=== PATIENT | female | born 1960 | race Asian ===

== ENCOUNTER 2019-04-17 09:27 | Inpatient (IN) | payer MEDICAID ==
[~2019-04-17] VITALS: Ht 167.6 cm; Wt 99.8 kg
[~2019-04-17 09:27] MED LIST: ASPI81EC19 PO; CALC-1198 PO; CHOL200072 PO; FERR325E14 PO; LISI-420 PO
[2019-04-17 09:31] VITALS: BP 166/70
--- NOTE | 2019-04-17 09:38 | NUR ---
PT AMBULATED TO ER BED 04
--- NOTE | 2019-04-17 09:55 | NUR ---
BIB SON C/O HTN. SON REPORTS HIGH BLOOD PRESSURE YESTERDAY AND TODAY STATING THE HIGHEST SBP WAS 170 ACCOMPANIED WITH HEADACHE, BLURRY VISION, AND DIZZINESS. CURRENT BLOOD PRESSURE 157/67 mmHG. DENIES N/V/D; SKIN IS PINK/WARM/DRY; AAOX4 WITH EVEN AND STEADY GAIT; LUNGS CLEAR BL; HR EVEN AND REGULAR; PT DENIES ANY FEVER, CP, SOB, OR COUGH AT THIS TIME; PATIENT STATES PAIN OF 7/10 AT THIS TIME; VSS; PATIENT POSITIONED FOR COMFORT; HOB ELEVATED; BEDRAILS UP X2; BED DOWN. ER MD MADE AWARE OF PT STATUS. PT IS ON 2L OXYGEN, NASAL CANNULA, AND MONITOR.
[2019-04-17] MEDS ORDERED: ONDANSETRON 4 MG/2 ML VIAL IVP ONE (10:05)
[2019-04-17] MEDS ORDERED: MECLIZINE 25 MG TAB PO ONE (10:05)
[2019-04-17 10:23] LABS: BASOPHILS # (AUTO) 0.1 K/uL (0.00-0.22); BASOPHILS % (AUTO) 0.9 % (0.0-2.0); EOSINOPHILS # (AUTO) 0.2 K/uL (0-0.4); EOSINOPHILS % (AUTO) 3.1 % (0.0-4.0); HEMATOCRIT 36.8 % (36-48); HEMOGLOBIN 11.8 g/dL (12.0-16.0); LYMPHOCYTES # (AUTO) 2.3 K/uL (2.5-16.5); LYMPHOCYTES % (AUTO) 30.2 % (20.5-51.1); MEAN CORPUSCULAR HEMOGLOBIN 20 pg (27-31); MEAN CORPUSCULAR HGB CONC 32 g/dL (33-37); MONOCYTES # (AUTO) 0.5 K/uL (0.8-1.0); MONOCYTES % (AUTO) 7.1 % (1.7-9.3); NEUTROPHILS # (AUTO) 4.4 K/uL (1.8-7.7); NEUTROPHILS % (AUTO) 58.7 % (42.2-75.2); PLATELET COUNT (AUTO) 225 K/uL (140-450); RED BLOOD CELL COUNT(AUTO) 5.94 MIL/uL (4.20-5.40); WHITE BLOOD COUNT (AUTO) 7.5 K/uL (4.8-10.8)
--- NOTE | 2019-04-17 10:25 | NUR ---
returned from radiology via [facility]
[2019-04-17 10:34] LABS: ANION GAP 10.8 (8-16); CARBON DIOXIDE 28.8 mmol/L (21-32); CREATININE 0.6 mg/dL (0.6-1.3); POTASSIUM 3.6 mmol/L (3.5-5.1)
[2019-04-17 10:40] LABS: ALBUMIN 3.5 g/dL (3.4-5.0); TOTAL BILIRUBIN 0.4 mg/dL (0.0-1.0)
[2019-04-17 10:47] LABS: PROTHROMBIN TIME 9.8 secs (10.8-13.4)
[2019-04-17] MEDS ORDERED: MORPHINE SULFATE 4 MG/ML SYR IVP ONE (11:15)
[2019-04-17] MEDS ORDERED: DEXAMETHASONE 10 MG/ML VIAL IVP ONE (11:15)
[2019-04-17] MEDS ORDERED: FAMOTIDINE 20 MG/2 ML VIAL IVP ONE (11:15)
[2019-04-17 12:22] LABS: APPEARANCE,URINE CLEAR (CLEAR); BILIRUBIN,URINE NEGATIVE (NEGATIVE); BLOOD, URINE NEGATIVE (NEGATIVE); COLOR,URINE YELLOW (YELLOW); LEUKOCYTE ESTERASE ,URINE TRACE (NEGATIVE); NITRITE, URINE NEGATIVE (NEGATIVE); UGLUCOSE NEGATIVE (NEGATIVE)
[2019-04-17 12:33] LABS: RBC,URINE 0-5 /HPF (0-5); WBC,URINE 0-5 /HPF (0-5)
[2019-04-17] MEDS ORDERED: ONDANSETRON 4 MG/2 ML VIAL IM/IVP PRN (14:00)
[2019-04-17] MEDS ORDERED: ACETAMINOPHEN 325 MG TAB PO PRN (14:00)
[2019-04-17] MEDS ORDERED: MORPHINE SULFATE 2 MG/ML SYR IVP PRN (14:00)
[2019-04-17] MEDS ORDERED: DOCUSATE SODIUM 100 MG GELCAP PO PRN (14:00)
[2019-04-17] MEDS ORDERED: LORazepam 2 MG/ML VIAL IM/IVP PRN (14:00)
[2019-04-17] MEDS ORDERED: HYDROcodone/APAP 5/325 MG 1 TAB TAB PO PRN (14:00)
[2019-04-17] MEDS ORDERED: LISI-420 PO (14:29)
[2019-04-17] MEDS ORDERED: ATOR20TA40 PO (14:32)
[2019-04-17] MEDS ORDERED: CARV6.25 PO (14:33)
[2019-04-17] MEDS ORDERED: [UNRECOGNIZED DRUG - CODE] PO (14:37)
[2019-04-17 14:41] LABS: BARBITURATE, URINE NEG. ng/ml (NEG <=200); BENZODIAZEPINE, URINE NEG. ng/mL (NEG <=200); CANNABINOID, URINE NEG. ng/mL (NEG <=50); COCAINE, URINE NEG. ng/mL (NEG <=300); OPIATE, URINE NEG. ng/mL (NEG <=2000); PHENCYCLIDINE SCREEN,URINE NEG. ng/mL (NEG <=25)
--- NOTE | 2019-04-17 14:43 | NUR ---
Patient will be admitted to care of evalated Troponin and Bradycardia. Admited to Telemetry. Will go to room 126B. Belongings list completed. Report to TIFFANY Diaz.
--- NOTE | 2019-04-17 14:45 | NUR ---
PATIENT ARRIVED VIA GURNEY, PT AMBULATED FROM RELK RAPIDS TO BED. BEDSIDE REPORT RECEIVED FROM LOW PRESSURE FIRER JULIANA AT BEDSIDE FOR CONTINUITY OF CARE. SON ALEXANDRU AT BEDSIDE. PATIENT AOX4, MANDARIN SPEAKING. NO COMPLAINTS OF PAIN AT THIS TIME. NO DISTRESS OR SOB NOTED ON ROOM AIR. UPDATED BOARD. IV SITE INTACT, PATENT, AND ASYMPTOMATIC. MRSA SCREENING DONE. ORIENTED PATIENT AND SON TO ROOM, BED, CALL LIGHT, TV, AND BATHROOM. WILL CONTINUE TO MONITOR PATIENT.
[2019-04-17 14:51] LABS: PHOSPHORUS 3.6 mg/dL (2.5-4.9); THYROID STIMULATING HORMONE 2.79 uIU/mL (0.34-3.74)
[2019-04-17] MEDS: NACL 0.9% 1,000 ML IV SCH (15:20)
--- NOTE | 2019-04-17 15:45 | NUR ---
EXPLAINED PLAN OF CARE WITH PATIENT AND SON ALEXANDRU, THEY VERBALIZED UNDERSTANDING. NO COMPLAINTS AT THIS TIME, PATIENT DENIES PAIN. WILL CONTINUE TO MONITOR PATIENT.
[2019-04-17 16:00] VITALS: BP 140/63
[2019-04-17] MEDS ORDERED: MECLIZINE 25 MG TAB PO PRN (16:05)
[2019-04-17] MEDS ORDERED: APAP/BUTAL/CAFF 325/50/40 MG 1 TAB PO PRN (16:10)
[2019-04-17] MEDS ORDERED: ATORVASTATIN 20 MG TAB PO SCH (16:28)
[2019-04-17] MEDS ORDERED: ASPIRIN 81 MG TAB.CHEW PO SCH (17:00)
[2019-04-17] MEDS: FERROUS SULFATE 325 MG TABEC PO SCH (17:55)
--- NOTE | 2019-04-17 17:55 | NUR ---
ORDERED MEDICATIONS GIVEN. EXPLAINED MEDICATION TO PATIENT, SHE VERBALIZED UNDERSTANDING. PATIENT TOLERATED IT WELL. PATIENT CURRENTLY EATING DINNER. NO COMPLAINTS AT THIS TIME. WILL CONTINUE TO MONITOR PATIENT.
--- NOTE | 2019-04-17 19:30 | NUR ---
REPORT GIVEN TO OVERHAULER NURSE AT BEDSIDE FOR CONTINUITY OF CARE, PATIENT IN STABLE CONDITION, SON ALEXANDRU AT BEDSIDE.
--- NOTE | 2019-04-17 19:31 | NUR ---
RECEIVED REPORT FORM DAY SHIFT NURSE WILDA-RN AT BEDSIDE. PT RESTING IN BED, AOX4- SPEAKS MANDARIN, ON ROOM AIR WITH RIGHT HAND #20G RUNNING NS @60ML/HR. WITH THE HELP OF WILDA-RN DISCUSSED SCHEDULED MEDICATIONS AND PT VERBALIZED UNDERSTANDING. NO S/S OF RESPIRATORY DISTRESS OR DISCOMFORT NOTED AT THIS TIME. NO S/S OF RESPIRATORY DISTRESS OR DISCOMFORT NOTED AT THIS TIME. BED IN LOWEST POSITION, BED BREAKS ON, BOTH SIDE RAILS UP. BEDSIDE TABLE AND CALL LIGHT ARE WITHIN REACH. WILL CONTINUE TO MONITOR.
[2019-04-17 20:00] VITALS: BP 127/42
--- NOTE | 2019-04-17 20:00 | NUR ---
VITAL SIGNS TAKEN AND TOLERATED WELL. NO S/S OF RESPIRATORY DISTRESS OR DISCOMFORT NOTED AT THIS TIME. WILL CONTINUE TO MONITOR.
[2019-04-17] MEDS ORDERED: LISINOPRIL 20 MG TAB PO SCH (21:00)
--- NOTE | 2019-04-17 21:20 | NUR ---
SCHEDULED MEDICATIONS TAKEN AND TOLERATED WELL. NO S/S OF RESPIRATORY DISTRESS OR DISCOMFORT NOTED AT THIS TIME. WILL CONTINUE TO MONITOR.
--- NOTE | 2019-04-17 22:00 | NUR ---
PT SLEEPING IN BED. NO S/S OF RESPIRATORY DISTRESS OR DISCOMFORT NOTED AT THIS TIME. WILL CONTINUE TO MONITOR.
[2019-04-18] VITALS: BP 127/50
--- NOTE | 2019-04-18 | NUR ---
VITAL SIGNS TAKEN AND TOLERATED WELL. NO S/S OF RESPIRATORY DISTRESS OR DISCOMFORT NOTED AT THIS TIME. WILL CONTINUE TO MONITOR.
--- NOTE | 2019-04-18 02:00 | NUR ---
PT CONTINUES TO SLEEP IN BED. NO S/S OF RESPIRATORY DISTRESS OR DISCOMFORT NOTED AT THIS TIME. WILL CONTINUE TO MONITOR.
[2019-04-18 04:00] VITALS: BP 133/50
--- NOTE | 2019-04-18 04:00 | NUR ---
VITAL SIGNS TAKEN AND TOLERATED WELL. NO S/S OF RESPIRATORY DISTRESS OR DISCOMFORT NOTED AT THIS TIME. WILL CONTINUE TO MONITOR.
--- NOTE | 2019-04-18 06:00 | NUR ---
PT AWAKE RESTING IN BED. NO S/S OF RESPIRATORY DISTRESS OR DISCOMFORT NOTED AT THIS TIME. WILL CONTINUE TO MONITOR.
[2019-04-18 06:14] LABS: CHOL/HDL RATIO 2.9 (1-4.5)
[2019-04-18 06:18] LABS: PHOSPHORUS 3.6 mg/dL (2.5-4.9)
[2019-04-18 06:19] LABS: ANION GAP 14.7 (8-16); CARBON DIOXIDE 24.9 mmol/L (21-32); CREATININE 0.7 mg/dL (0.6-1.3); POTASSIUM 3.6 mmol/L (3.5-5.1)
[2019-04-18 06:20] LABS: BASOPHILS % (AUTO) 0.1 % (0.0-2.0); HEMATOCRIT 37.9 % (36-48); HEMOGLOBIN 12.1 g/dL (12.0-16.0); LYMPHOCYTES # (AUTO) 1.3 K/uL (2.5-16.5); LYMPHOCYTES % (AUTO) 8.2 % (20.5-51.1); MEAN CORPUSCULAR HEMOGLOBIN 20 pg (27-31); MEAN CORPUSCULAR HGB CONC 32 g/dL (33-37); MEAN CORPUSCULAR VOLUME 62.4 fL (80-94); MONOCYTES # (AUTO) 0.3 K/uL (0.8-1.0); MONOCYTES % (AUTO) 1.8 % (1.7-9.3); NEUTROPHILS # (AUTO) 14.8 K/uL (1.8-7.7); NEUTROPHILS % (AUTO) 89.9 % (42.2-75.2); PLATELET COUNT (AUTO) 220 K/uL (140-450); RED BLOOD CELL COUNT(AUTO) 6.07 MIL/uL (4.20-5.40); RED CELL DISTRIBUTION WIDTH 16.5 % (11.6-13.7); WHITE BLOOD COUNT (AUTO) 16.5 K/uL (4.8-10.8)
[2019-04-18] MEDS: NACL 0.9% 1,000 ML IV SCH (07:30)
[2019-04-18 08:00] VITALS: BP 118/55
--- NOTE | 2019-04-18 08:50 | NUR ---
DUE TO MEDITECH DOWNTIME, PLEASE REFER PREVIOUS NOTES IN PATIENT'S CHART.
[2019-04-18] MEDS ORDERED: LACTOBACILLUS RHAMNOSUS GG 1 EACH CAP PO SCH (09:00)
[2019-04-18] MEDS ORDERED: ATORVASTATIN 20 MG TAB PO SCH (09:00)
[2019-04-18] MEDS ORDERED: ASPIRIN 81 MG TAB.CHEW PO SCH (09:00)
--- NOTE | 2019-04-18 09:13 | NUR ---
PATIENT HAS BEEN SCREENED AND CATEGORIZED MODERATE NUTRITION RISK. PATIENT WILL BE SEEN WITHIN 3-5 DAYS OF ADMISSION. 04/20/19[address]
--- NOTE | 2019-04-18 09:15 | NUR ---
DR LANGE IS TALKING TO PATIENT AND SON RICHY AT BEDSIDE. NO SIGNS OF DISTRESS NOTED. TELE MONITOR ATTACHED. SAFETY MEASURES IN PLACE.
[2019-04-18] MEDS: FERROUS SULFATE 325 MG TABEC PO SCH ×2 (09:33→11:37)
--- NOTE | 2019-04-18 09:37 | NUR ---
ADMINISTERED MEDS PER MD ORDER, PATIENT TOLERATED WELL. PATIENT DENIES PAIN AND SOB. PATIENT IS SITTING UP ON BED AND TALKING TO SON ALEXANDRU BY BEDSIDE. NO SIGNS OF DISTRESS NOTED. SAFETY MEASURES IN PLACE. TELE MONITOR ATTACHED. INSTRUCTED PATIENT AND YADIEL HORVATH TO USE THE CALL LIGHT FOR ANY ASSISTANCE AND BOTH AWARE.
--- NOTE | 2019-04-18 10:00 | NUR ---
DR WILKINS IS ASSESSING PATIENT AT BEDSIDE. NO SIGNS OF DISTRESS NOTED. SAFETY MEASURES IN PLACE. TELE MONITOR ATTACHED.
[2019-04-18 10:01] LABS: TRANSFERRIN 191 mg/dL (200-370)
--- NOTE | 2019-04-18 11:39 | NUR ---
PATIENT IS RESTING ON BED. DENIES PAIN, DIZZINESS AND SOB. RESPIRATION EVEN AND UNLABORED ON RA. NO SIGNS OF DISTRESS NOTED. TELE MONITOR IN PLACE. SAFETY MEASURES IN PLACE. INSTRUCTED PATIENT TO USE THE CALL LIGHT AND PATIENT WAS AWARE.
--- NOTE | 2019-04-18 11:58 | NUR ---
PICKED UP CD IMAGES FROM [facility] DEPARTMENT AND PLACED IN PATIENT'S CHART.
[2019-04-18 12:00] VITALS: BP 130/51
--- NOTE | 2019-04-18 12:36 | NUR ---
I GOT A CALL FROM [facility] SPOKE WITH M[facility] , PATIENT IS GOING TO BE TRANSFER TO [facility] WAITING FOR ROOM NUMBER.AUTH FOR TRANSPORT IS [id number] WILL PUT A TRANSPORT WILL CALL
--- NOTE | 2019-04-18 13:16 | NUR ---
ARRANGED THE TRANSPORT WITH [facility] PLACE IT WILL CALL GAVE THE AUTHORIZATION # [id number]
--- NOTE | 2019-04-18 13:25 | NUR ---
PATIENT IS RESTING ON BED AT THIS TIME. NO SIGNS OF DISTRESS NOTED. TELE MONITOR IN PLACE. SAFETY MEASURES IN PLACE.
--- NOTE | 2019-04-18 14:41 | NUR ---
RECEIVED A CALL FROM [facility] SIMTH PT IS ACCEPTED TO [facility] UNDER THE CARE OF DR RADHA WALLACE THE ADDRESS [address] [place] [facility] [id number] CAN GO TO ROOM 232 THE NUMBER TO GIVE REPORT [phone]
--- NOTE | 2019-04-18 14:56 | NUR ---
ARRANGED TRANSPORT WITH [facility] TESTER/LIFT TRUCKER TIME 4PM TIFFANY BOCANEGRA AWARE OF IT.
--- NOTE | 2019-04-18 15:15 | NUR ---
PATIENT IS PLAYING HER PHONE ON BED. INFORMED PATIENT THAT SHE WILL TRANSFER TO ANOTHER HOSPITAL AND PATIENT WAS AWARE. NO SIGNS OF DISTRESS NOTED. SAFETY MEASURES IN PLACE.
--- NOTE | 2019-04-18 15:40 | NUR ---
CALLED SON ALEXANDRU AND INFORMED THAT PATIENT WILL BE TRANSFER TO A CONTRACTED FACILITY [facility]. PER ALEXANDRU, HE DOES NOT WANT TO TRANSFER HIS MOTHER OUT TO A [facility]AR AWAY FACILITY. HE WILL COME IN THE HOSPITAL AND WOULD LIKE TO SPEAK WITH THE DR. NOTIFIED DR LANGE ON ABOVE INFOR, AND PER DR LANGE, SHE WILL TALK TO ALEXANDRU ONCE HE ARRIVES THE HOSPITAL.
--- NOTE | 2019-04-18 15:50 | NUR ---
CALLED [facility] AND GAVE FULL REPORT TO DIPTI Burns RN. ANSWERED ALL DIPTI'S QUESTIONS AND PROVIDED A CALL BACK NUMBER FOR FURTHER INQUIRY. 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
[2019-04-18 16:00] VITALS: BP 135/57
--- NOTE | 2019-04-18 16:00 | NUR ---
DR LANGE IS TALKING TO SON ALEXANDRU AND EXPLAINED THE REASON WHY WE HAVE TO TRANSFER PATIENT. ALEXANDRU WAS AWARE AND AGREED TO TRANSFER PATIENT.
--- NOTE | 2019-04-18 16:15 | NUR ---
RETAIL SALESMAN HAS CHANGE PATIENT INTO [place] AND DISCHARGE DOCUMENT HAS BEEN PREPARED. AWAITING FOR [facility] TRANSPORTATION TO ARRIVE.
--- NOTE | 2019-04-18 16:35 | NUR ---
DISCHARGE INSTRUCTION PROVIDED TO PATIENT AND SON ALEXANDRU AT BEDSIDE. EDUCATED PATIENT AND SON ON DISEASE MANAGEMENT, SIGNS AND SYMPTOMS, MEDICATION REGIMEN, SIDE EFFECTS, AND DIET REGIMEN. BOTH VERBALIZED UNDERSTANDING. ANSWERED ALL PATIENT'S AND ALEXANDRU'S QUESTIONS. REMOVED ARM BANDS AND TELE MONITOR FROM PATIENT. SON ALEXANDRU CHECKED ALL THE CABINETS AND TOOK ALL PATIENT'S BELONGINGS. PATIENT IS GOING TO TRANSFER AT THIS TIME ACCOMPANIED BY [facility]SPORT. PATIENT IS IN STABLE CONDITION.
[2019-04-19] MEDS ORDERED: ROC1PM IV (05:50)
[2019-04-19] MEDS ORDERED: LACT10CA1 PO (05:50)
[2019-04-23 07:47] LABS: FERRITIN 459 ng/mL (15-150)
== END 2019-04-18 16:35 | disposition short-term general hospital (02) | DRG 190 ==
LOC: MED 09:27 → MMU 14:02
PROVIDERS: ADMIT General Practice; ATTEND General Practice
DX: I21.A1 Myocardial infarction type 2 (principal); G90.8 Other disorders of autonomic nervous system; G44.209 Tension-type headache, unspecified, not intractable; N39.0 Urinary tract infection, site not specified; E78.5 Hyperlipidemia, unspecified; D50.9 Iron deficiency anemia, unspecified; I10 Essential (primary) hypertension; R00.1 Bradycardia, unspecified; Z88.8 Allergy status to other drugs, medicaments and biological substances; Z79.899 Other long term (current) drug therapy; Z83.3 Family history of diabetes mellitus; Z82.49 Family history of ischemic heart disease and other diseases of the circulatory system; Z98.891 History of uterine scar from previous surgery
CPT/HCPCS: 36415; 70450; 71045; 80048; 80053; 80305; 81001; 82140; 82150; 82728; 83036; 83540; 83690; 83735; 83880; 84100; 84443; 84484; 85025; 85045; 85610; 85651; 86140; 87081; 93005; 93880; 96374; 96375; 97161-GP; 99291; J0696; J1100; J1644; J2270; J2405; J3490; J7030; J7060; J8597; Q0092

== ENCOUNTER 2019-12-13 10:02 | Emergency (ER) | payer MEDICAID ==
[~2019-12-13] VITALS: Ht 170.2 cm; Wt 102.1 kg
[~2019-12-13 10:02] MED LIST changes: +ATOR20TA40 PO; +LACT10CA1 PO; +ROC1PM IV; +[UNRECOGNIZED DRUG - CODE] PO
[2019-12-13 10:09] VITALS: BP 155/76
--- NOTE | 2019-12-13 10:13 | NUR ---
PT TO BED 9 WITH STEADY GAIT
--- NOTE | 2019-12-13 10:29 | NUR ---
BIB SON C/O RT EYE DARK "SHADOW" AND BRIGHT SPOTS X 2 DAYS. DENIES PAIN OR ABNORMAL DISCHARGE. 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 PATIENT STATES PAIN OF 0/10 AT THIS TIME; VSS; PATIENT POSITIONED FOR COMFORT; HOB ELEVATED; BEDRAILS UP X1; BED DOWN. ER MD MADE AWARE OF PT STATUS. SON IS AT BEDSIDE.
--- NOTE | 2019-12-13 11:35 | NUR ---
DR. DAMON IS EVALUATING PT AT BEDSIDE.
[2019-12-13 12:09] VITALS: BP 122/65
--- NOTE | 2019-12-13 12:09 | NUR ---
Patient discharged with v/s stable. Written and verbal after care instructions given and explained. Patient verbalized understanding. Ambulatory with steady gait. All questions addressed prior to discharge. Advised to follow up with PMD.
== END 2019-12-13 12:09 | disposition home or self-care (01) ==
LOC: MED 10:02
DX: H43.391 Other vitreous opacities, right eye (principal); I10 Essential (primary) hypertension; Z79.899 Other long term (current) drug therapy; Z79.82 Long term (current) use of aspirin; Z98.890 Other specified postprocedural states
CPT/HCPCS: 99283

== ENCOUNTER 2022-07-05 10:21 | Emergency (ER) | payer MEDICAID ==
[~2022-07-05] VITALS: Ht 162.6 cm; Wt 97.1 kg
[~2022-07-05 10:21] MED LIST changes: -LISI-420 PO; +LISI-487 PO
[2022-07-05 10:34] VITALS: BP 136/58
--- NOTE | 2022-07-05 11:59 | NUR ---
DR NAVARRETE IN TRIAGE FOR EVAL
--- NOTE | 2022-07-05 12:00 | NUR ---
61 Y/O FEMALE C/O SORE THROATX1 DAY NKA PMH: HTN
--- NOTE | 2022-07-05 12:10 | NUR ---
SWABS HANDED TO PRINCESS
[2022-07-05] MEDS ORDERED: AMOX1TAB8 PO (12:21)
[2022-07-05] MEDS ORDERED: BENZ-300 PO (12:21)
[2022-07-05] MEDS ORDERED: DEC4 PO (12:21)
--- NOTE | 2022-07-05 12:30 | NUR ---
Patient discharged with v/s stable. Written and verbal after care instructions given and explained. Patient alert, oriented and verbalized understanding of instructions. Ambulatory with steady gait. All questions addressed prior to discharge. ID band removed. Patient advised to follow up with PMD. Rx of AMOX-CLAV [id number], CEPACOL SORE THROAT LOZENGE, DECADRON given. Patient educated on indication of medication including possible reaction and side effects. Opportunity to ask questions provided and answered.
== END 2022-07-05 12:30 | disposition home or self-care (01) ==
LOC: MED 10:21
DX: J02.9 Acute pharyngitis, unspecified (principal); Z20.822 Contact with and (suspected) exposure to COVID-19; I10 Essential (primary) hypertension; Z79.899 Other long term (current) drug therapy
CPT/HCPCS: 87081; 99283

== ENCOUNTER 2024-02-26 17:41 | Emergency (ER) | payer MEDICAID ==
[~2024-02-26] VITALS: Ht 177.8 cm; Wt 97.5 kg
[~2024-02-26 17:41] MED LIST changes: +AMOX1TAB8 PO; +BENZ-300 PO; +DEC4 PO
[2024-02-26 18:04] VITALS: BP 124/73; PULSE 78; RESP 17; TEMP 98.6; O2SAT 95
[2024-02-26 18:58] LABS: APPEARANCE,URINE CLEAR (CLEAR); BILIRUBIN,URINE NEGATIVE (NEGATIVE); BLOOD, URINE TRACE-I (NEGATIVE); COLOR,URINE YELLOW (YELLOW); LEUKOCYTE ESTERASE ,URINE 1+ (NEGATIVE); NITRITE, URINE NEGATIVE (NEGATIVE); PH,URINE 6.5 (5.0-9.0); PROTEIN,URINE NEGATIVE (NEGATIVE); UGLUCOSE NEGATIVE (NEGATIVE); UROBILINOGEN,URINE 0.2 EU/dL (0.2 - 1)
[2024-02-26 19:10] LABS: BACTERIA,URINE FEW /HPF (None Seen); MUCUS,URINE None Seen /LPF (None Seen); RBC,URINE 0-5 /HPF (0-5); SQUAMOUS EPITHELIAL CELL,UR 4-10 (MOD) /LPF (0-3 (FEW)); TRICHOMONAS,URINE None Seen /HPF (None Seen); WHITE BLOOD CELL CASTS,URINE None Seen /LPF (None Seen); YEAST,URINE None Seen /HPF (None Seen)
[2024-02-26 19:24] LABS: BASOPHILS # (AUTO) 0.1 K/uL (0.00-0.22); BASOPHILS % (AUTO) 0.9 % (0.0-2.0); EOSINOPHILS # (AUTO) 0.2 K/uL (0-0.4); EOSINOPHILS % (AUTO) 2.4 % (0.0-4.0); HEMATOCRIT 39.4 % (36-48); HEMOGLOBIN 12.8 g/dL (12.0-16.0); LYMPHOCYTES # (AUTO) 2.7 K/uL (2.5-16.5); LYMPHOCYTES % (AUTO) 37.3 % (20.5-51.1); MEAN CORPUSCULAR HEMOGLOBIN 20 pg (27-31); MEAN CORPUSCULAR HGB CONC 32 g/dL (33-37); MONOCYTES # (AUTO) 0.6 K/uL (0.8-1.0); MONOCYTES % (AUTO) 8.5 % (1.7-9.3); NEUTROPHILS # (AUTO) 3.7 K/uL (1.8-7.7); NEUTROPHILS % (AUTO) 50.9 % (42.2-75.2); PLATELET COUNT (AUTO) 167 K/uL (140-450); RED BLOOD CELL COUNT(AUTO) 6.25 MIL/uL (4.20-5.40); RED CELL DISTRIBUTION WIDTH 15.4 % (11.6-13.7); WHITE BLOOD COUNT (AUTO) 7.3 K/uL (4.8-10.8)
[2024-02-26 19:34] LABS: ANION GAP 10.9 (8-16); CARBON DIOXIDE 29.9 mmol/L (21-32); CREATININE 0.8 mg/dL (0.6-1.3); POTASSIUM 3.8 mmol/L (3.5-5.1)
[2024-02-26 19:37] LABS: INR 1.05 (0.8-1.2); PARTIAL THROMBOPLASTIN TIME 25.6 secs (22-35.6)
[2024-02-26 19:46] LABS: ALANINE AMINOTRANSFERASE 34 U/L (12-78); ALBUMIN 3.6 g/dL (3.4-5.0); ALKALINE PHOSPHATASE 75 U/L (50-136); ASPARTATE AMINOTRANSFERASE 23 U/L (15-37); BILIRUBIN,DIRECT 0.2 mg/dL (0.0-0.3); TOTAL BILIRUBIN 0.7 mg/dL (0.0-1.0); TOTAL PROTEIN, SERUM 6.5 g/dL (6.4-8.2)
[2024-02-26 20:01] VITALS: O2SAT 95
[2024-02-26] MEDS: ACETAMINOPHEN 325 MG TAB PO ONE (20:16)
[2024-02-26] MEDS ORDERED: METO25TA PO (20:43)
[2024-02-26] MEDS ORDERED: APIX5TAB PO (20:43)
[2024-02-26] MEDS ORDERED: CHOL200072 PO (20:43)
[2024-02-26] MEDS ORDERED: ATOR20TA PO (20:43)
[2024-02-26] MEDS ORDERED: AMLO2.5T PO (20:43)
[2024-02-26] MEDS: ONDANSETRON 4 MG/2 ML VIAL IVP ONE (22:20)
[2024-02-26] MEDS: AMOXIL/CLAVULANATE 875/125 MG 1 TAB PO ONE (22:20)
[2024-02-26] MEDS: NACL 0.9% 1,000 ML IV ONE (22:21)
[2024-02-26 23:22] VITALS: O2SAT 96
[2024-02-27 01:13] VITALS: O2SAT 95
[2024-02-27 02:47] VITALS: BP 127/60; PULSE 60; RESP 15; TEMP 97.7
== END 2024-02-27 02:35 | disposition short-term general hospital (02) ==
LOC: MED 17:41
DX: N39.0 Urinary tract infection, site not specified (principal); I48.91 Unspecified atrial fibrillation; R51.9 Headache, unspecified; R20.0 Anesthesia of skin; R42 Dizziness and giddiness; K21.9 Gastro-esophageal reflux disease without esophagitis; I10 Essential (primary) hypertension; Z79.899 Other long term (current) drug therapy; Z20.822 Contact with and (suspected) exposure to COVID-19
CPT/HCPCS: 36415; 70450; 71045; 80048; 80076; 81001; 83880; 84484; 85025; 85610; 85730; 86886; 86900; 86901; 87086; 87426; 93005; 96361; 96374; 99285; J2405; J7030; 96360